=== PATIENT | female | born 1970 | race Caucasian/White ===

== ENCOUNTER 2019-01-28 15:29 | Emergency (ER) | payer OTHER ==
--- NOTE | 2019-01-28 17:26 | EKG REPORT ---
SEVERITY:- OTHERWISE NORMAL ECG - SINUS TACHYCARDIA : Confirmed by: Mike Vasquez MD 28-Jan-2019 17:25:15
--- NOTE | 2019-01-28 19:02 | ER Document Report ---
ED Medical Screen (RME) - General Chief Complaint: Chest Pain Stated Complaint: BACK PAIN, CHEST PAIN, LEFT ARM PAIN Time Seen by Provider: 01/28/19 18:55 Mode of Arrival: Ambulatory Information source: Patient TRAVEL OUTSIDE OF THE [place] IN LAST 30 DAYS: No - HPI Patient complains to provider of: CHEST PAIN, ABDO PAIN Notes: 01/28/19 18:59 Patient with complaints of chest pain and upper abdominal pain. The pain has been present for about a week. States the pain is whenever she eats and in her epigastric area and radiates into her left upper shoulder area and chest. No shortness of breath. No fever. She has had nausea vomiting. No prior abdominal surgeries. She does have a prior history of an ulcer. She is a non-s moker. No history of hypertension, hyper cholesterol, diabetes, CAD. No drug use. Exam Nontoxic, no distress. Epigastric tenderness to palpation. Lungs clear throughout. Heart sounds normal. Plan CBC, CMP, lipase, troponin, EKG, chest x-ray, ultrasound of the gallbladder. An initial examination was made on the patient as part of the triage process, and it was determined a more comprehensive evaluation was necessary. Initial labs were ordered and patient was transferred to another provider in the ED who assumed care and finished evaluation and plan. - Related Data Allergies/Adverse Reactions: erythromycin base Allergy (Verified 01/28/19 15:32) Past Medical History Renal/ Medical History: Denies: Hx Peritoneal Dialysis Past Surgical History: Reports: Hx Orthopedic Surgery - knee Physical Exam - Vital signs Vitals: Temp Pulse Resp BP Pulse Ox 98.5 F 91 18 167/97 H 100 01/28/19 15:44 01/28/19 15:44 01/28/19 15:44 01/28/19 15:44 01/28/19 15:44 Course - Vital Signs Vital signs: Temp Pulse Resp BP Pulse Ox 98.5 F 91 18 167/97 H 100 01/28/19 15:44 01/28/19 15:44 01/28/19 15:44 01/28/19 15:44 01/28/19 15:44
--- NOTE | 2019-01-28 19:29 | RADIOLOGY REPORT (SQ) ---
EXAM DESCRIPTION: CHEST 2 VIEWS COMPLETED DATE/TIME: 01/28/2019 7:13 pm REASON FOR STUDY: CHEST PAIN COMPARISON: None. EXAM PARAMETERS: NUMBER OF VIEWS: two views TECHNIQUE: Digital Frontal and Lateral radiographic views of the chest acquired. RADIATION DOSE: NA LIMITATIONS: none FINDINGS: LUNGS AND PLEURA: No opacities, masses or pneumothorax. No pleural effusion. MEDIASTINUM AND HILAR STRUCTURES: No masses or contour abnormalities. HEART AND VASCULAR STRUCTURES: Heart normal size. No evidence for failure. BONES: No acute findings. HARDWARE: None in the chest. OTHER: No other significant finding. IMPRESSION: NO ACUTE RADIOGRAPHIC FINDING IN THE CHEST. TECHNICAL DOCUMENTATION: JOB ID: [id number] [employer]- All Rights Reserved Reading location - IP/workstation name: [email or web address]
[2019-01-28 19:41] LABS: ABSOLUTE BASOPHILS # (AUTO) 0.1 10^3/uL (0.0-0.2); ABSOLUTE EOSINOPHILS # (AUTO) 0.1 10^3/uL (0.0-0.6); ABSOLUTE LYMPHOCYTES (AUTO) 2.5 10^3/uL (0.5-4.7); ABSOLUTE MONOCYTES (AUTO) 0.6 10^3/uL (0.1-1.4); ABSOLUTE NEUT (AUTO) 6.8 10^3/uL (1.7-8.2); BASOPHILS % (AUTO) 0.7 % (0-2); EOSINOPHILS % (AUTO) 0.7 % (0-6); HEMATOCRIT 37.3 % (36.0-47.0); HEMOGLOBIN 12.8 g/dL (12.0-15.5); MEAN CORPUSCULAR HEMOGLOBIN 32.3 pg (27.0-33.4); MEAN CORPUSCULAR HGB CONC 34.3 g/dL (32.0-36.0); MEAN CORPUSCULAR VOLUME 94 fl (80-97); MONOCYTES % (AUTO) 6.1 % (3-13); PLATELET COUNT 227 10^3/uL (150-450); RED BLOOD COUNT 3.95 10^6/uL (3.72-5.28); RED CELL DISTRIBUTION WIDTH 13.3 % (11.5-14.0); SEGMENTED NEUTROPHILS % (AUTO) 67.5 % (42-78); TOTAL CELLS COUNTED % (AUTO) 100 %; WHITE BLOOD COUNT 10.1 10^3/uL (4.0-10.5)
[2019-01-28 19:44] LABS: APPEARANCE,URINE CLEAR; BILIRUBIN,URINE NEGATIVE (NEGATIVE); COLOR,URINE YELLOW; GLUCOSE, URINE NEGATIVE (NEGATIVE); KETONES,URINE NEGATIVE (NEGATIVE); LEUKOCYTE ESTERASE,URINE TRACE (NEGATIVE); NITRITE,URINE NEGATIVE (NEGATIVE); PROTEIN,URINE NEGATIVE (NEGATIVE); URINE SPECIFIC GRAVITY 1.024; UROBILINOGEN,URINE NEGATIVE mg/dL (<2.0)
[2019-01-28 20:04] LABS: ALANINE AMINOTRANSFERASE 27 U/L (9-52); ALKALINE PHOSPHATASE 92 U/L (38-126); ANION GAP 7 (5-19); ASPARTATE AMINO TRANSFERASE 23 U/L (14-36); BILIRUBIN,DIRECT 0.2 mg/dL (0.0-0.4); BILIRUBIN,TOTAL 0.4 mg/dL (0.2-1.3); BLOOD UREA NITROGEN 16 mg/dL (7-20); CALCIUM 10.4 mg/dL (8.4-10.2); CARBON DIOXIDE 25 mmol/L (22-30); CHLORIDE 107 mmol/L (98-107); GLUCOSE 114 mg/dL (75-110); LIPASE 76.8 U/L (23-300); POTASSIUM 4.2 mmol/L (3.6-5.0); SODIUM 138.8 mmol/L (137-145); TOTAL PROTEIN 7.6 g/dL (6.3-8.2)
--- NOTE | 2019-01-28 20:17 | RADIOLOGY REPORT (SQ) ---
EXAM DESCRIPTION: US ABDOMEN LIMITED COMPLETED DATE/TME: 01/28/2019 18:56 CLINICAL HISTORY: 48 years, Female, EPIGASTRIC PAIN COMPARISON: None. TECHNIQUE: Abdominal ultrasound was performed. LIMITATIONS: None. FINDINGS: Visualized portions of the pancreas appear normal in echogenicity. Abdominal aorta appears normal with measurements as follows: Proximal abdominal aorta: 2.2 cm Mid abdominal aorta: 1.6 cm Distal abdominal aorta: 1.5 cm The liver is diffusely echogenic. It measures 15 cm in length. Antegrade flow is documented within the main portal vein. Right kidney measures 9.5 cm in length. No hydronephrosis. Gallbladder wall thickness measures 2 mm. Echogenic material appears to layer dependently within the gallbladder lumen. Sonographic Chiu sign was negative. Common bile duct diameter measures 5 mm. IMPRESSION: Suspected gallbladder sludge. Otherwise, no sonographic evidence of acute cholecystitis. Echogenic liver, suggestive of hepatic steatosis. copyright 2010 [employer]- All Rights Reserved
[2019-01-28] MEDS ORDERED: FAMOTIDINE 20 MG TABLET PO ONE (21:58)
[2019-01-28] MEDS ORDERED: SUCRALFATE 1 GM TABLET PO ONE (21:59)
[2019-01-28] MEDS ORDERED: MAG HYDROX/AL HYDROX/SIMETH SUSP 30 ML UDCUP PO ONE (21:59)
[2019-01-28] MEDS ORDERED: LIDOCAINE 2% VISCOUS SOLN 20 ML UDCUP PO ONE (21:59)
[2019-01-28] MEDS ORDERED: METOCLOPRAMIDE HCL ORAL SOLN 10 MG/10 ML UDCUP PO ONE (21:59)
--- NOTE | 2019-01-28 21:59 | ER Document Report ---
ED General - General Chief Complaint: Chest Pain Stated Complaint: BACK PAIN, CHEST PAIN, LEFT ARM PAIN Time Seen by Provider: 01/28/19 18:55 Mode of Arrival: Ambulatory Notes: Patient is a 48-year-old female without chronic medical problems, does not take daily medications who presents with 2-3 days of epigastric abdominal discomfort intermittently radiating up into her central chest and into her mid back. Describes the pain as being a mild, throbbing, burning, fullness to the upper abdomen. Seems to be worsened by food intake. Has not trying to improve her symptoms. Relatively unchanged since onset. Significant other at the bedside does relate that she has had symptoms of gastritis and reflux many times in the past. Does note that she has been drinking a lot of orange juice as she was recently sick with a viral upper respiratory infection and wanted to use the or she is to help treat this infection. She states that she became concerned today when she began having some left upper extremity discomfort as well prompting her to come to the emergency department. She has no known cardiac history. No history of DVT or pulmonary embolus. Non-smoker. Symptoms have improved without intervention here in the emergency department. Has not seen her general physician regarding today's concerns. TRAVEL OUTSIDE OF THE [place] IN LAST 30 DAYS: No - Related Data Allergies/Adverse Reactions: erythromycin base Allergy (Verified 01/28/19 15:32) Past Medical History - General Information source: Patient - Social History Smoking Status: Never Smoker Frequency of alcohol use: None Drug Abuse: None Lives with: Spouse/Significant other Family History: Reviewed & Not Pertinent Patient has suicidal ideation: No Patient has homicidal ideation: No Renal/ Medical History: Denies: Hx Peritoneal Dialysis Past Surgical History: Reports: Hx Orthopedic Surgery - knee Review of Systems - Review of Systems Notes: Constitutional: Negative for fever. HENT: Negative for sore throat. Eyes: Negative for visual changes. Cardiovascular: Positive for chest pain. Respiratory: Negative for shortness of breath. Gastrointestinal: Positive for upper abdominal pain and bloating Genitourinary: Negative for dysuria. Musculoskeletal: Positive for left upper extremity pain Skin: Negative for rash. Neurological: Negative for headaches, weakness or numbness. 10 point ROS negative except as marked above and in HPI. Physical Exam - Vital signs Vitals: Temp Pulse Resp BP Pulse Ox 98.5 F 91 18 167/97 H 100 01/28/19 15:44 01/28/19 15:44 01/28/19 15:44 01/28/19 15:44 01/28/19 15:44 Interpretation: Hypertensive Notes: PHYSICAL EXAMINATION: GENERAL: Well-appearing, well-nourished and in no acute distress. HEAD: Atraumatic, normocephalic. EYES: Pupils equal round and reactive to light, extraocular movements intact, sclera anicteric, conjunctiva are normal. ENT: nares patent, oropharynx clear without exudates. Moist mucous membranes. NECK: Normal range of motion, supple without lymphadenopathy LUNGS: Breath sounds clear to auscultation bilaterally and equal. No wheezes rales or rhonchi. HEART: Regular rate and rhythm without murmurs ABDOMEN: Soft, nontender, normoactive bowel sounds. No guarding, no rebound. No masses appreciated. EXTREMITIES: Normal range of motion, no pitting or edema. No cyanosis. NEUROLOGICAL: No focal neurological deficits. Moves all extremities spontaneously and on command. PSYCH: Normal mood, normal affect. SKIN: Warm, Dry, normal turgor, no rashes or lesions noted. Course - Re-evaluation Re-evalutation: 01/28/19 21:54 Patient presents with epigastric abdominal pain with associated reflux symptoms most consistent with likely gastritis. Patient has also had some intermittent left arm pain which did increase concern for possible ACS presentation. Thankfully heart score is less than 3, 2- troponins 3 hours apart, EKG is normal. Patient has no focal abdominal tenderness on examination. Right upper quadrant ultrasound does not demonstrate any evidence of acute cholecystitis and clinical history not consistent with symptomatic cholelithiasis. Lipase is normal. Chest x-ray is clear. No LFT changes. Based on history and exam, I do not suspect ACS, pulmonary embolus, SBO, mesenteric ischemia, acute pancreatitis, biliary pathology, or an abdominal aortic dissection. At this time will discharge with return precautions and follow-up recommendations. Verbal discharge instructions given a the bedside and opportunity for questions given. Medication warnings reviewed. Patient is in agreement with this plan and has verbalized understanding of return precautions and the need for primary care follow-up in the next 24-72 hours. - Vital Signs Vital signs: Temp Pulse Resp BP Pulse Ox 98.1 F 91 14 155/107 H 98 01/28/19 23:14 01/28/19 15:44 01/28/19 23:11 01/28/19 23:11 01/28/19 23:11 - Laboratory Result Diagrams: 01/28/19 19:25 01/28/19 19:25 Laboratory results interpreted by me: 01/28/19 01/28/19 19:25 19:25 Glucose 114 H Calcium 10.4 H Ur Leukocyte Esterase TRACE H - Diagnostic Test Radiology reviewed: Image reviewed, Reports reviewed Radiology results interpreted by me: 01/28/19 21:55 Chest x-ray: No acute infiltrate or pneumothorax - EKG Interpretation by Me Additional EKG results interpreted by me: 01/28/19 21:57 Sinus tachycardia, rate 105. No ST elevations or depressions. QTC is 466. Discharge - Discharge Clinical Impression: Upper abdominal pain, Left arm pain, Chest discomfort Condition: Good Disposition: HOME, SELF-CARE Additional Instructions: Your symptoms appear to be most consistent with stomach or upper intestinal irritation. Please begin taking famotidine 40 mg in the morning and 40 mg at night. Take Carafate prior to meals. You may also take medicine such as Pepto- Bismol or Tums to assist with your pain. Please return to emergency department immediately if you have worsening of your pain, shortness of breath, vomiting, become unable to exert yourself due to pain or difficulty breathing, you pass out, or have any pain that radiates into your arms, jaw, or back. Please also return if you have any additional symptoms that are concerning to you. As we have discussed, the most important thing is lifestyle changes. You need to avoid smoking, sodas, tea, coffee, alcohol, spicy foods, and acidic foods such as citrus fruits, tomato based products, berries, and most fruit juices. Prescriptions: Famotidine 40 mg PO BID #60 tablet Sucralfate [Carafate 1 gm Tablet] 1 gm PO ACHS #120 tablet
[2019-01-28 23:15] VITALS: BP 155/107
== END 2019-01-28 23:14 | disposition home or self-care (01) ==
LOC: ER 15:29
DX: R07.9 Chest pain, unspecified (principal); R10.10 Upper abdominal pain, unspecified; M79.602 Pain in left arm; R10.13 Epigastric pain; R14.0 Abdominal distension (gaseous)
CPT/HCPCS: 93005; 99284; 36415; 83690; 85025; 80053; 81001; 84484; 71046; 76705; 93010; J3490

== ENCOUNTER 2020-05-07 07:46 | Emergency (ER) | payer SELFPAY ==
[2020-05-07 08:42] LABS: ABSOLUTE EOSINOPHILS # (AUTO) 0.1 10^3/uL (0.0-0.6); ABSOLUTE LYMPHOCYTES (AUTO) 1.9 10^3/uL (0.5-4.7); ABSOLUTE MONOCYTES (AUTO) 0.5 10^3/uL (0.1-1.4); ABSOLUTE NEUT (AUTO) 4.2 10^3/uL (1.7-8.2); BASOPHILS % (AUTO) 0.6 % (0-2); EOSINOPHILS % (AUTO) 2.2 % (0-6); HEMOGLOBIN 13.6 g/dL (12.0-15.5); LYMPHOCYTES % (AUTO) 27.7 % (13-45); MEAN CORPUSCULAR HEMOGLOBIN 32.4 pg (27.0-33.4); MEAN CORPUSCULAR HGB CONC 34.1 g/dL (32.0-36.0); MEAN CORPUSCULAR VOLUME 95 fl (80-97); MONOCYTES % (AUTO) 7.3 % (3-13); PLATELET COUNT 229 10^3/uL (150-450); RED CELL DISTRIBUTION WIDTH 12.7 % (11.5-14.0); SEGMENTED NEUTROPHILS % (AUTO) 62.2 % (42-78); TOTAL CELLS COUNTED % (AUTO) 100 %; WHITE BLOOD COUNT 6.7 10^3/uL (4.0-10.5)
[2020-05-07 08:46] LABS: AMORPHOUS SEDIMENT,URINE TRACE /HPF; APPEARANCE,URINE CLOUDY; BILIRUBIN,URINE NEGATIVE (NEGATIVE); COLOR,URINE YELLOW; GLUCOSE, URINE NEGATIVE (NEGATIVE); KETONES,URINE NEGATIVE (NEGATIVE); LEUKOCYTE ESTERASE,URINE NEGATIVE (NEGATIVE); NITRITE,URINE NEGATIVE (NEGATIVE); PROTEIN,URINE 30 mg/dL (NEGATIVE); URINE SPECIFIC GRAVITY 1.015; UROBILINOGEN,URINE NEGATIVE mg/dL (<2.0)
[2020-05-07 08:54] LABS: ALBUMIN 4.2 g/dL (3.5-5.0); ALKALINE PHOSPHATASE 101 U/L (38-126); ANION GAP 6 (5-19); ASPARTATE AMINO TRANSFERASE 44 U/L (14-36); BILIRUBIN,TOTAL 0.4 mg/dL (0.2-1.3); BLOOD UREA NITROGEN 13 mg/dL (7-20); CALCIUM 10.4 mg/dL (8.4-10.2); CARBON DIOXIDE 28 mmol/L (22-30); CHLORIDE 106 mmol/L (98-107); GLUCOSE 133 mg/dL (75-110); POTASSIUM 4.4 mmol/L (3.6-5.0); TOTAL PROTEIN 7.7 g/dL (6.3-8.2)
[2020-05-07] MEDS ORDERED: ONDANSETRON HCL INJ/PF 4 MG/2 ML SDV IV ONE (09:06)
[2020-05-07] MEDS ORDERED: KETOROLAC TROMETHAMINE INJ/PF 30 MG/1 ML SDV IV ONE (09:06)
[2020-05-07] MEDS ORDERED: MORPHINE SULFATE 10 MG/ML INJ IV ONE (09:06)
[2020-05-07] MEDS ORDERED: NORMAL SALINE 1000 ML 1,000 ML IV ONE (09:07)
--- NOTE | 2020-05-07 09:10 | ER Document Report ---
ED General - General Chief Complaint: Possible Kidney Stone Stated Complaint: ABDOMINAL PAIN Time Seen by Provider: 05/07/20 08:34 TRAVEL OUTSIDE OF THE [place] IN LAST 30 DAYS: No - HPI Notes: Patient is a 49-year-old female presents emergency department for evaluation of left leg pain. This started at 7:00 this morning. She was sleeping, woke her from sleep. She is had nausea with a few episodes of emesis. Pain is sharp and stabbing, radiates around into her left lower pelvis. She said no fevers or chills. No gross hematuria or urinary frequency. She is never had symptoms similar to this in the past. - Related Data Allergies/Adverse Reactions: erythromycin base Allergy (Verified 01/28/19 15:32) Home Medications: None Past Medical History - General Information source: Patient - Social History Smoking Status: Never Smoker Frequency of alcohol use: None Drug Abuse: None Family History: CAD, Malignancy - Medical History Medical History: Negative Renal/ Medical History: Denies: Hx Peritoneal Dialysis Past Surgical History: Reports: Hx Orthopedic Surgery - Bilateral knee arthroscopy Review of Systems - Review of Systems Gastrointestinal: See HPI Genitourinary: See HPI -: Yes All other systems reviewed and negative Physical Exam - Vital signs Vitals: Temp Pulse Resp BP Pulse Ox 97.9 F 74 18 148/82 H 98 05/07/20 07:50 05/07/20 07:50 05/07/20 07:50 05/07/20 07:50 05/07/20 07:50 - Notes Notes: Is a 49-year-old female who appears her stated age in a moderate amount of distress. She is intermittently vomiting, nonbloody, nonbilious emesis. Vital signs reviewed, please refer to chart. Head is normocephalic, atraumatic. Pupils equal round, reactive to light. Neck is supple without meningismus. Heart is regular rate and rhythm. Lungs are clear to auscultation bilaterally. Abdomen is soft, moderately tender in the left upper and left lower quadrants without rebound or guarding, normoactive bowel sounds throughout. Positive CVA tenderness on the left. Extremities without cyanosis, clubbing. Posterior calves are nontender. Peripheral pulses are equal. Skin is warm and dry. Joel velazquez is awake, alert, neurological exam is nonfocal. Course - Re-evaluation Re-evalutation: 05/07/20 09:09 Patient presents to the emergency department for evaluation of left flank pain. She had laboratory investigations as ordered through protocol. She is showing signs of renal colic. She has large blood in her urine. Patient will be sent for CT scan of the abdomen pelvis to evaluate for stone. She will be given Toradol, morphine, Zofran, IV fluids. She is currently stable, we will continue to monitor. 05/07/20 10:29 Patient feeling significantly improved. CT scan reveals 3 mm proximal ureteral stone. Mild hydronephrosis noted. Will give first dose of Flomax, send with prescription for symptomatic medications and Flomax as well. She is to follow- up with primary care, return to the ED with worsening. - Vital Signs Vital signs: Temp Pulse Resp BP Pulse Ox 97.9 F 74 18 148/82 H 98 05/07/20 07:50 05/07/20 07:50 05/07/20 07:50 05/07/20 07:50 05/07/20 07:50 - Laboratory Result Diagrams: 05/07/20 08:25 05/07/20 08:25 Laboratory results interpreted by me: 05/07/20 05/07/20 08:25 08:25 Glucose 133 H Calcium 10.4 H AST 44 H ALT 60 H Urine Protein 30 H Urine Blood LARGE H - Diagnostic Test Radiology reviewed: Reports reviewed Radiology results interpreted by me: 05/07/20 10:29 Abdomen/Pelvis CT 05/07/20 09:07 IMPRESSION: 1. Mild left obstructive uropathy due to proximal ureteral stone measuring close to 3 mm. Discharge - Discharge Clinical Impression: Ureterolithiasis Hydronephrosis Qualifiers: Hydronephrosis type: with ureteral calculous obstruction Qualified Code(s): N13.2 - Hydronephrosis with renal and ureteral calculous obstruction Condition: Stable Disposition: HOME, SELF-CARE Instructions: Kidney Stone ([facility]) Additional Instructions: Rest, stay well-hydrated. Take medications as prescribed. Watch for dizziness with Flomax, get up slowly. Watch for dizziness, drowsiness, constipation with the [place]. Follow-up with primary care this week. If you develop fevers, worse elizabeth pain, or any other new or concerning symptoms, please return immediately to the emergency department for evaluation.
--- NOTE | 2020-05-07 10:18 | RADIOLOGY REPORT (SQ) ---
EXAM DESCRIPTION: CT ABD/PELVIS NO ORAL OR IV IMAGES COMPLETED DATE/TIME: 05/07/2020 9:49 am REASON FOR STUDY: Left flank pain, eval for kidney stone COMPARISON: None. TECHNIQUE: CT scan of the abdomen and pelvis performed without intravenous or oral contrast. Images reviewed with lung, soft tissue, and bone windows. Reconstructed coronal and sagittal MPR images revi ewed. All images stored on PACS. All CT scanners at this facility use dose modulation, iterative reconstruction, and/or weight based d osing when appropriate to reduce radiation dose to as low as reasonably achievable (ALARA). [facility]: Dose Right [facility]: CareDose [facility]: Dose Right [facility]: Teradose 4D [facility]: Smart [employer] RADIATION DOSE: CT Rad equipment meets quality standard of care and radiation dose reduction techniq ues were employed. CTDIvol: 7.4 mGy. DLP: 385 mGy-cm.mGy. LIMITATIONS: None. FINDINGS: LOWER CHEST: No significant findings. No nodules or infiltrates. NON-CONTRASTED LIVER, SPLEEN, ADRENALS: Evaluation limited by lack of IV contrast. No identified sign ificant masses. PANCREAS: No masses. No peripancreatic inflammatory changes. GALLBLADDER: No identified stones by CT criteria. No inflammatory changes to suggest cholecystitis. RIGHT KIDNEY AND URETER: No solid masses. No significant calcification. No hydronephrosis or hydroure ter. LEFT KIDNEY AND URETER: Perinephric stranding with slight hydronephrosis and proximal ureteral dilata tion due to a 3 mm stone in the proximal ureter. AORTA AND RETROPERITONEUM: No aneurysm. No retroperitoneal masses or adenopathy. BOWEL AND PERITONEAL CAVITY: No obvious masses or inflammatory changes. No free fluid. APPENDIX: Not visualized. PELVIS, BLADDER, AND ABDOMINAL WALL:No abnormal masses. No free fluid. Bladder normal. BONES: No significant findings. OTHER: No other significant finding. IMPRESSION: 1. Mild left obstructive uropathy due to proximal ureteral stone measuring close to 3 mm. TECHNICAL DOCUMENTATION: JOB ID: [id number] Quality ID # [id number]: Final reports with documentation of one or more dose reduction techniques (e.g., Au tomated exposure control, adjustment of the mA and/or kV according to patient size, use of iterative reconstruction technique) 2010 [employer]- All Rights Reserved Reading location - IP/workstation name: [email or web address]
[2020-05-07] MEDS ORDERED: TAMSULOSIN HCL 0.4 MG CAP.SR.24H PO ONE (10:30)
[2020-05-07 10:48] VITALS: BP 159/94
== END 2020-05-07 10:54 | disposition home or self-care (01) ==
LOC: ER 07:46
DX: N13.2 Hydronephrosis with renal and ureteral calculous obstruction (principal); M79.605 Pain in left leg; R11.2 Nausea with vomiting, unspecified; R10.2 Pelvic and perineal pain; R10.812 Left upper quadrant abdominal tenderness; R10.814 Left lower quadrant abdominal tenderness; R10.9 Unspecified abdominal pain; R31.9 Hematuria, unspecified
CPT/HCPCS: 99284; 96361; 96374; 96375; 36415; 83690; 84703; 85025; 80053; 81001; 74176; J1885; J2270; J2405; J7030